=== PATIENT | male | born 1975 | race Caucasian/White ===

== ENCOUNTER 2024-07-21 21:48 | Emergency (ER) | payer OTHER, SELFPAY ==
[2024-07-21 21:49] VITALS: BP 121/76; PULSE 99; RESP 15; TEMP 38.5; O2SAT 95; BMI 21.7
[2024-07-21 21:50] VITALS: BP 121/76; PULSE 99; RESP 15; TEMP 38.5; O2SAT 95
[2024-07-21 23:00] VITALS: BP 135/84; PULSE 100; RESP 18; TEMP 37.5; O2SAT 96
[2024-07-21] MEDS: Metoclopramide 10 MG/2 ML Vial 5 MG IV (23:39)
[2024-07-21] MEDS: 0.9% Normal Saline (1000mL) 1,000 ML 999 ML IV (23:39)
--- NOTE | 2024-07-21 23:40 | EDS_ITS ---
HPI History of Present Illness Chief Complaint: Nausea/Vomiting Informant: patient and spouse/S.O. Associated Symptoms Associated Symptoms ED: cough Narrative Narrative: 48-year-old healthy patient has been sick for about 1 week with fevers, chills, malaise, body aches, cough, and in the last 2 or so days he has been vomiting to the point where he is having trouble keeping any fluids down. He saw urgent care today and got some Zofran but it did not help and has been vomiting all day. Denies any abdominal pain. No diarrhea. No chest pain or dyspnea. [facility] PFS Medical History Cardiomyopathy Home Medications ?Medication ?Instructions ?Recorded ?Last Taken ?Type metoclopramide HCl 10 mg tablet 10 mg PO Q6H PRN PRN H eadache #15 07/21/24 Unknown Rx tabs ondansetron 4 mg disintegrating 4 mg PO Q6H PRN nausea and vomiting 07/21/24 Unknown History tablet Allergy/AdvReac Type Severity Reaction Status Date / Time No Known Allergies Allergy Verified 07/21/24 21:49 Social History Smoking Status: Never smoker ROS [facility] ED Constitutional Constitutional ED: Reports body ache(s), chills, fatigue, fever(s), headache(s) and malaise Eyes Eyes: Denies change in vision or diplopia ENT ENT ED: Denies rhinorrhea or sore throat Cardiovascular Cardiovascular: Denies chest pain or palpitations Respiratory/Chest Respiratory/Chest: Reports cough; Denies dyspnea or dyspnea on exertion Gastrointestinal Gastrointestinal: Reports nausea and vomiting; Denies abdominal pain or diarrhea Genitourinary Genitourinary ED: Denies dysuria or hematuria Musculoskeletal Musculoskeletal: Denies back pain or neck pain Integumentary Denies abscess or rash Neurologic Neurologic: Reports headache(s); Denies paresthesias or weakness Psychiatric Psychiatric: Denies anxiety or suicidal thoughts EXAM Physical Exam Const Vital Signs: 07/21/24 21:49 07/21/24 21:50 07/21/24 23:00 Temperature 101.3 F H 101.3 F H 99.5 F H Temperature Source Oral Oral Oral Pulse Rate 99 99 100 Respiratory Rate 15 15 18 Blood Pressure 121/76 H 121/76 H 135/84 H Blood Pressure Mean 91 91 101 Pulse Ox 95 95 96 Oxygen Delivery Method Room Air Room Air Room Air Positive well nourished and well developed Constitutional Narrative: well-appearing, no distress General Appearance ED: well developed and NAD HEENT Reports moist mucous membranes normocephalic and atraumatic Eyes PERRL and EOMs intact bilaterally Neck full ROM and supple Resp normal respiratory effort and clear to auscultation bilaterally Cardio regular rate, regular rhythm and no murmurs Rate: tachycardic GI non-tender and non-distended Auscultation: normoactive bowel sounds Palpation: soft Back/Spine no CVA tenderness General Back: other FROM Extremity normal to inspection and no calf tenderness General Extremety ED: Negative for edema, pulses abnormal or tenderness General Extremity: Negative for edema or pulses abnormal Neuro oriented x3, CN's II-XII intact bilaterally and no sensory deficits noted Sensorium / Orientation: awake and alert Motor Exam: strength 5/5 throughout Psych mental status grossly normal Skin no rashes or lesions noted and no wounds MDM MDM MDM Narrative Medical decision making narrative: Viral swab is positive for influenza A, there is been a high prevalence in the community, so this is likely a true positive. He was given IV fluids, Toradol, and Reglan in the IV which helped and he was able to tolerate oral fluid challenge. His vital signs are normal, he was mildly tachycardic on my ev aluation, he was vomiting. His oral mucous membranes are moist I do not think he needs more than a liter of IV fluids. I will give him a prescription for Reglan, and he hopefully is at the tail end of the illness here. Supportive care advised. Discharge Plan Triage Chief Complaint: Nausea/Vomiting ED Provider: Nick Mena Dx/Rx/DC Orders Clinical Impression: Influenza A, Nausea & vomiting, Mild dehydration Instructions: ED Influenza (Adult) Prescriptions: New metoclopramide HCl 10 mg tablet 10 mg PO Q6H PRN PRN (Reason: Headache) Qty: 15 0RF No Action ondansetron 4 mg tablet,disintegrating 4 mg PO Q6H PRN (Reason: nausea and vomiting) Primary Care Provider: Adan Diaz Referrals: Adan Diaz DO [Primary Care Provider] - 3-5 Days if not improving Print Language: Cambodian Disposition Disposition: Home, Self Care
[2024-07-21] MEDS: Ketorolac 30 MG/ML Syringe IV (23:52)
[2024-07-22] VITALS: BP 141/72; PULSE 96; RESP 18; TEMP 37.4; O2SAT 94
[2024-07-22 00:27] VITALS: BP 141/72; PULSE 92; RESP 18; TEMP 37.2; O2SAT 94
== END 2024-07-22 00:39 | disposition home or self-care (01) ==
PROVIDERS: Emergency Provider Emergency Medicine; PCP Family Medicine; Visit Provider Emergency Medicine
DX: R11.2 Nausea with vomiting, unspecified (principal); J10.1 Influenza due to other identified influenza virus with other respiratory manifestations; E86.0 Dehydration
CPT/HCPCS: 87631; 96361; 96374; 96375; 99283; A4216